=== PATIENT | female | born 1980 | race Two or more races ===

== ENCOUNTER → 2018-02-22 | Emergency (ER) | payer OTHER ==
[~2018-02-22] VITALS: Ht 160 cm; Wt 76.2 kg
== END | disposition home or self-care (01) ==
LOC: ER 16:22
DX: K29.60 Other gastritis without bleeding (principal); K44.9 Diaphragmatic hernia without obstruction or gangrene

== ENCOUNTER 2024-09-04 09:03 | Emergency (ER) | payer OTHER ==
[~2024-09-04] VITALS: Ht 160 cm; Wt 81.6 kg
[~2024-09-04 09:03] MED LIST: CARAFATE1 GM; DICY20TA; KETO10TA2 PO; LEVSIN/SL0.125 MG PO; OMEPRAZOLE40 MG; PROTONIX40 MG PO; ZANTAC300 MG PO
[2024-09-04] MEDS ORDERED: KETOROLAC TROMETHAMINE 60 MG VIAL IM ONE (10:00)
[2024-09-04] MEDS ORDERED: 0.9 % SODIUM CHLORIDE 1,000 ML IV ONE (10:00)
[2024-09-04] MEDS ORDERED: ONDANSETRON HCL 2 MG/ML VIAL IV ONE (10:00)
[2024-09-04] MEDS ORDERED: FAMOtidine 10 MG/ML (4ML VIAL) IV ONE (10:00)
[2024-09-04 10:18] LABS: HEMATOCRIT 33.9 % (36.0-45.00); MEAN CELL VOLUME 80.1 fL (80.00-100.00); MEAN CORPUSCULAR HGB CONC 32.5 g/dl (32.0-36.0); PLATELET COUNT 374 K/uL (150-450); RED BLOOD COUNT 4.23 M/uL (4.00-6.00); RED CELL DISTRIBUTION WIDTH 16.3 % (11.5-14.5)
[2024-09-04 10:39] LABS: INR 1.01; PARTIAL THROMBOPLASTIN TIME 28.2 SECONDS (22.0-34.0)
[2024-09-04 11:32] LABS: ALBUMIN 3.6 gm/dL (3.4-5.0); ALKALINE PHOSPHATASE 75 U/L (50-136); ALT/SGPT 20 U/L (12-78); ANION GAP 7 (10.0-20.0); AST/SGOT 18 U/L (15-37); BLOOD UREA NITROGEN 4 mg/dL (7-18); BUN CREA RATIO 7 (7.0-25.0); CALCIUM 8.8 mg/dL (8.5-10.1); CARBON DIOXIDE 30 mEq/L (21-32); CHLORIDE 108 mmol/L (98-107); CREATININE SERUM 0.57 mg/dL (0.55-1.02); GFR 115.76; GLOBULINA 4.4 G/DL (2.4-3.5); GLUCOSE FASTING 91 mg/dL (65-100); OSMOLALITY SERUM 278 MOSM/KG (275-295); POTASSIUM 3.84 mEq/L (3.5-5.1); SODIUM 141 mmol/L (136-145)
[2024-09-04 11:34] LABS: HCG QUANTITATIVE < 1 mUI/mL (1-3)
[2024-09-04 13:21] LABS: PH,URINE 6.5 (5.0-8.0); URINE APPEARANCE Clear; URINE BILIRRUBIN Negative (NEGATIVE); URINE BLOOD Negative; URINE COLOR Yellow; URINE GLUCOSE Negative (NEGATIVE); URINE KETONE Negative (NEGATIVE); URINE LEUKOCYTE Negative; URINE NITRATE Negative; URINE PROTEIN Negative (NEGATIVE); URINE UROBILINOGEN 0.2 E.U./dl
[2024-09-04 13:24] LABS: URINE BACTERIA 927.1 uL (0.0-1933); URINE EPITHELIAL CELLS 28.4 uL (0.0-38.8); URINE RBC 41.6 uL (0.0-20.8); URINE WBC 9.7 uL (0.0-23.2)
== END 2024-09-04 22:40 | disposition home or self-care (01) ==
LOC: ER 09:05
PROVIDERS: General Practice
DX: R10.9 Unspecified abdominal pain (principal); R11.2 Nausea with vomiting, unspecified; Z88.8 Allergy status to other drugs, medicaments and biological substances; J45.909 Unspecified asthma, uncomplicated

== ENCOUNTER 2025-11-05 07:41 | Emergency (ER) | payer OTHER ==
[~2025-11-05] VITALS: Ht 160 cm; Wt 80.7 kg
[2025-11-05] MEDS ORDERED: ONDANSETRON HCL 2 MG/ML VIAL IV STA (09:09)
[2025-11-05] MEDS ORDERED: FAMOTIDINE/PF 20 MG/2 ML VIAL IV STA (09:09)
[2025-11-05] MEDS ORDERED: ONDANSETRON HCL 2 MG/ML VIAL ONE (09:26)
[2025-11-05] MEDS ORDERED: FAMOTIDINE/PF 20 MG/2 ML VIAL ONE (09:27)
[2025-11-05 10:02] LABS: BASO % 0.4 % (0.1-1.2); EOS # 0.07 (0.04-0.54); EOS % 0.9 % (0.7-7.0); LYMPH # 1.58 (1.18-3.74); LYMPH % 20.8 % (19.3-53.1); MEAN PLATELET VOLUME 9.50 fl (9.4-12.4); MONO # 0.26 (0.24-0.82); MONO % 3.4 % (4.7-12.5); NEUT # 5.64 (1.56-6.13); NEUT % 74.2 % (34.0-71.1); RED CELL DISTRIBUTION WIDTH 12.6 % (11.6-14.4)
[2025-11-05 10:28] LABS: ALT/SGPT 25.0 U/L (12-78); AST/SGOT 26.0 U/L (15-37); BILIRUBIN TOTAL 0.21 mg/dL (0.3-1.2); BUN CREA RATIO 14.0 (7.0-25.0); CREATININE SERUM 0.56 mg/dL (0.55-1.02); GFR 117.6; GLOBULINA 4.6 G/DL (2.4-3.5); GLUCOSE FASTING 91.0 mg/dL (65-100); OSMOLALITY SERUM 283.0 MOSM/KG (275-295)
[2025-11-05] MEDS ORDERED: OMEPRAZOLE MAGN20 MG PO (14:26)
[2025-11-05] MEDS ORDERED: LEVSIN0.125 MG PO (14:26)
[2025-11-05] MEDS ORDERED: PEPCID AC20 MG PO (14:26)
== END 2025-11-05 14:50 | disposition home or self-care (01) ==
LOC: ER 07:42
PROVIDERS: General Practice
DX: K52.89 Other specified noninfective gastroenteritis and colitis (principal); Z88.8 Allergy status to other drugs, medicaments and biological substances; N28.1 Cyst of kidney, acquired